=== PATIENT | male | born 1960 | race Caucasian/White ===

== ENCOUNTER 2018-06-25 15:53 | Emergency (ER) | payer MEDICARE ==
--- NOTE | 2018-06-25 15:59 | ER Report ---
History and Physical Time Seen By MD: 15:59 HPI/ROS CHIEF COMPLAINT:sob "i dont feel well, I think i need dialysis" HISTORY OF PRESENT ILLNESS: PT moving from [place] to [facility]. PT has been on hemodialysis for one year. PT usually gets dialysis M, W, F. Pt has dialysis scheduled in a clinic tomorrow in [facility]. PT stopped here because in route he started to feel more sob on arrival to [place]. They stopped at the gas station and pt states he felt dizzy and sob. said he was too weak so they decided to come to [place]. Pt has hx of copd and is on chronic oxygen. Pt denies cough. no fevers. no chest pain. PT is on levaquin due to had bronchitis prior to leaving [facility]. REVIEW OF SYSTEMS: Constitutional: No fever, no chills. Eyes: No discharge. ENT: No sore throat. Cardiovascular: No chest pain, no palpitations. Respiratory: No cough, + shortness of breath. Gastrointestinal: No abdominal pain, no vomiting. Genitourinary: No hematuria. Musculoskeletal: No back pain. Skin: No rashes. Neurological: No headache, + weakness Allergies: Coded Allergies: Penicillins (Verified Allergy, Unknown, 06/25/18) clindamycin (Verified Allergy, Unknown, 06/25/18) clonidine (Verified Allergy, Unknown, 06/25/18) tramadol (Verified Allergy, Unknown, 06/25/18) Home Meds Reported Medications Ondansetron Hcl (ZOFRAN) 4 Mg Tablet, 8 MG PO TID, TAB 06/25/18 Vitamin E Acetate (VITAMIN E) 1,000 Unit Capsule, 800 UNIT PO DAILY, CAPSULE 06/25/18 Cholecalciferol (Vitamin D3) (VITAMIN D3) 1,000 Unit Tablet, 800 UNIT PO DAILY, TAB 06/25/18 Venlafaxine Hcl (VENLAFAXINE HCL ER) 75 Mg Tab.er.24, 75 MG PO QDAY 06/25/18 Tacrolimus Anhydrous (TACROLIMUS) 0.5 Gm Powder, 2 MG MC Q12H 06/25/18 Quetiapine Fumarate (SEROQUEL) 200 Mg Tablet, 200 MG PO HS 06/25/18 Metoclopramide Hcl 10 Mg Vial (REGLAN 10 MG VIAL) 10 Mg/2 Ml Injs, 10 MG PO QID, VIAL 06/25/18 Metoclopramide Hcl 10 Mg Vial (REGLAN 10 MG VIAL) 10 Mg/2 Ml Injs, 10 MG IM NOW, VIAL 06/25/18 Calcium Acetate (CALCIUM ACETATE) 667 Mg Tablet, 667 MG PO DAILY 06/25/18 Omeprazole (OMEPRAZOLE) 40 Mg Capsule.dr, 40 MG PO QDAY, CAP 06/25/18 Nateglinide (NATEGLINIDE) 60 Mg Tablet, 30 MG PO TIDAC 06/25/18 Lorazepam (LORAZEPAM) 1 Mg Tab, 1 MG PO TID, TAB 06/25/18 Levothyroxine Sodium (LEVOTHYROXINE SODIUM) 50 Mcg Tablet, 25 MCG PO QDAY, TAB 06/25/18 Lactulose (LACTULOSE) 10 Gm/15 Ml Solution, 30 GM PO TID 06/25/18 Isosorbide Mononitrate (ISOSORBIDE MONONITRATE ER) 30 Mg Tab.er.24h, 30 MG PO 06/25/18 Insulin Lispro 100 Un/Ml Pen (HUMALOG 3 ML PEN) 100 Unit/1 Ml Insuln.pen, 1-10 UNIT SQ ACHS, DIS.SYR 06/25/18 Carvedilol (COREG) 12.5 Mg Tablet, 12.5 MG PO BID, #10 TAB 06/25/18 Ipratropium/Albuterol Sulfate (COMBIVENT RESPIMAT INHAL SPRAY) 4 Gm Aer.w.adap, 1 EACH IH QID 06/25/18 Aspirin (ASPIRIN) 81 Mg Tab.chew, 81 MG PO QDAY, TAB.CHEW 06/25/18 Zolpidem Tartrate (AMBIEN) 10 Mg Tablet, 1 TAB PO QHS, TAB 06/25/18 Albuterol Sulfate 0.083% (ALBUTEROL SULFATE 0.083%) 2.5 Mg/3 Ml Vial.neb, 2.5 MG INH Q6-8H PRN for SHORTNESS OF BREATH, INH 06/25/18 Past Medical/Surgical History pmhx: renal failure, liver transplant, copd, htn, pericardial effusion, chf, shravan b, hypothyroid PShx: liver transplant Reviewed Nurses Notes: Yes Hx Smoking: No Hx Alcohol Use: No Constitutional Vital Sign - Last 24 Hours 06/25/18 06/25/18 06/25/18 06/25/18 15:53 15:59 16:05 16:08 Temp 97.9 Pulse ??? 89 89 Resp 20 B/P (MAP) 169/93 (118) 169/93 Pulse Ox 100 99 O2 Delivery Nasal Cannula 06/25/18 06/25/18 06/25/18 06/25/18 16:23 16:30 16:53 17:00 Pulse 90 92 B/P (MAP) 148/90 (109) 158/91 (113) Pulse Ox 94 97 06/25/18 17:08 Pulse 94 Pulse Ox 97 Physical Exam General Appearance: The patient is alert, has no immediate need for airway protection and no signs of toxicity. Eyes: Pupils equal and round no pallor or injection, EOMI ENT: no pharyngeal erythema or exudates, Mucous membranes are moist Respiratory: There are no retractions, lungs are clear to auscultation. Cardiovascular: Regular rate and rhythm. pulses are equal and symmetrical Gastrointestinal: Abdomen is soft and non tender, no masses, bowel sounds normal, no guarding, no rigidity or rebound, obese Neurological: Cranial nerves II-XII grossly intact, no sensory or motor loss Skin: Warm and dry, no rashes. Musculoskeletal: Neck is supple non tender, no vertebral tenderness Extremities are nontender, non swollen and have full range of motion. DIFFERENTIAL DIAGNOSIS: After history and physical exam differential diagnosis was considered for altitiude sickness, electrolyte abnl Medical Decision Making Data Points Result Diagram: 06/25/18 1621 06/25/18 1621 Laboratory Hematology Test 06/25/18 16:21 Red Blood Count 2.98 M/uL (4.00-5.60) Mean Corpuscular Volume 102.3 fL (80.0-96.0) Mean Corpuscular Hemoglobin 32.8 pg (26.0-33.0) Mean Corpuscular Hemoglobin Concent 32.1 g/dL (32.0-36.0) Red Cell Distribution Width 15.1 % (11.5-14.5) Mean Platelet Volume 7.7 fL (7.2-11.1) Neutrophils (%) (Auto) 79.7 % (39.4-72.5) Lymphocytes (%) (Auto) 10.5 % (17.6-49.6) Monocytes (%) (Auto) 6.6 % (4.1-12.4) Eosinophils (%) (Auto) 1.8 % (0.4-6.7) Basophils (%) (Auto) 1.4 % (0.3-1.4) Nucleated RBC Relative Count (auto) 0.1 /100WBC Neutrophils # (Auto) 5.0 K/uL (2.0-7.4) Lymphocytes # (Auto) 0.7 K/uL (1.3-3.6) Monocytes # (Auto) 0.4 K/uL (0.3-1.0) Eosinophils # (Auto) 0.1 K/uL (0.0-0.5) Basophils # (Auto) 0.1 K/uL (0.0-0.1) Nucleated RBC Absolute Count (auto) 0.00 K/uL Peripheral Blood Smear No Y/N Sodium Level 135 mmol/L (137-145) Potassium Level 5.6 mmol/L (3.5-5.0) Chloride Level 96 mmol/L (98-107) Carbon Dioxide Level 21 mmol/L (22-30) Blood Urea Nitrogen 76 mg/dl (9-21) Creatinine 10.90 mg/dl (0.66-1.25) Glomerular Filtration Rate Calc 4.9 Random Glucose 132 mg/dl (75-110) Calcium Level 8.1 mg/dl (8.4-10.2) Total Bilirubin 0.4 mg/dl (0.2-1.3) Aspartate Amino Transf (AST/SGOT) 18 U/L (0-35) Alanine Aminotransferase (ALT/SGPT) 23 U/L (0-56) Alkaline Phosphatase 68 U/L (0-126) Total Protein 7.6 g/dl (6.3-8.2) Albumin 4.2 g/dl (3.5-5.0) Chemistry Test 06/25/18 16:21 White Blood Count 6.2 k/uL (4.5-11.0) Red Blood Count 2.98 M/uL (4.00-5.60) Hemoglobin 9.8 g/dL (14.0-18.0) Hematocrit 30.5 % (42.0-52.0) Mean Corpuscular Volume 102.3 fL (80.0-96.0) Mean Corpuscular Hemoglobin 32.8 pg (26.0-33.0) Mean Corpuscular Hemoglobin Concent 32.1 g/dL (32.0-36.0) Red Cell Distribution Width 15.1 % (11.5-14.5) Platelet Count 135 K/uL (150-450) Mean Platelet Volume 7.7 fL (7.2-11.1) Neutrophils (%) (Auto) 79.7 % (39.4-72.5) Lymphocytes (%) (Auto) 10.5 % (17.6-49.6) Monocytes (%) (Auto) 6.6 % (4.1-12.4) Eosinophils (%) (Auto) 1.8 % (0.4-6.7) Basophils (%) (Auto) 1.4 % (0.3-1.4) Nucleated RBC Relative Count (auto) 0.1 /100WBC Neutrophils # (Auto) 5.0 K/uL (2.0-7.4) Lymphocytes # (Auto) 0.7 K/uL (1.3-3.6) Monocytes # (Auto) 0.4 K/uL (0.3-1.0) Eosinophils # (Auto) 0.1 K/uL (0.0-0.5) Basophils # (Auto) 0.1 K/uL (0.0-0.1) Nucleated RBC Absolute Count (auto) 0.00 K/uL Peripheral Blood Smear No Y/N Glomerular Filtration Rate Calc 4.9 Calcium Level 8.1 mg/dl (8.4-10.2) Total Bilirubin 0.4 mg/dl (0.2-1.3) Aspartate Amino Transf (AST/SGOT) 18 U/L (0-35) Alanine Aminotransferase (ALT/SGPT) 23 U/L (0-56) Alkaline Phosphatase 68 U/L (0-126) Total Protein 7.6 g/dl (6.3-8.2) Albumin 4.2 g/dl (3.5-5.0) EKG/Imaging EKG Interpretation nsr @ 90 with low qs voltage no acute st elevation Imaging mild central venous congestive changes ED Course/Re-evaluation Clinical Indication for ER IV: IV Access ED Course check labs, xray and will speak with [facility] 06/25/2018 5:23:22 pm Spoke with stuffing machine operator at [facility], Dr. Jorje Berg, who accepts pt under observation status at [facility]. Would like for us to treat his hyperkalemia with bicarb and insulin and glucose. Pt and is made aware of need for transfer. 06/25/2018 5:50:37 pm We received a bed from [facility], [id number]. Awaiting nursing laundry supervisor to come down to arrange ems transport. Will recheck bmp if ems is not here in next 30 minutes Decision to Disposition Date: Jun 25, 2018 Decision to Disposition Time: 17:51 Depart Departure Latest Vital Signs Vital Signs Date Time Temp Pulse Resp B/P (MAP) Pulse Ox O2 Delivery O2 Flow Rate FiO2 06/25/18 17:08 94 97 06/25/18 17:00 158/91 (113) 06/25/18 16:05 97.9 20 Nasal Cannula Impression: Primary Impression: Renal failure Additional Impressions: Hyperkalemia Congestive heart failure (CHF) Dyspnea Condition: Condition Unchanged Disposition: XFER TO [facility] Problem Qualifiers Primary Impression: Renal failure Renal failure chronicity: chronic Chronic kidney disease stage: on chronic dialysis Qualified Codes: N18.6 - End stage renal disease; Z99.2 - Dependence on renal dialysis Additional Impressions: Congestive heart failure (CHF) Heart failure type: unspecified Heart failure chronicity: acute on chronic Qualified Codes: I50.9 - Heart failure, unspecified Dyspnea Dyspnea type: unspecified Qualified Codes: R06.00 - Dyspnea, unspecified VI MONK DO Jun 25, 2018 15:59
[2018-06-25 16:40] LABS: PLATELET COUNT, AUTOMATED 135 K/uL (150-450)
--- NOTE | 2018-06-25 16:40 | EKG ---
FACILITY: [facility] PATIENT NAME: TEE GUTIERREZ : [id number] MR: [id number] V: [id number] EXAM DATE: ORDERING PHYSICIAN: VI MONK TECHNOLOGIST: LYLA Test Reason : SOB Blood Pressure : / mmHG Vent. Rate : 089 BPM Atrial Rate : 089 BPM P-R Int : 186 ms QRS Dur : 084 ms QT Int : 366 ms P-R-T Axes : 036 011 013 degrees QTc Int : 445 ms Normal sinus rhythm Low voltage QRS Cannot rule out Anterior infarct , age undetermined Abnormal ECG No previous ECGs available Confirmed by SABRINA STONE ([id number]) on 06/25/2018 7:40:29 PM Referred By: LACHO Confirmed By:SABRINA STONE
--- NOTE | 2018-06-25 16:51 | RADIOLOGY IMAGING REPORT ---
FACILITY: [facility] [place] PATIENT NAME: Addy Christie : 1960 MR: [id number] V: [id number] EXAM DATE: ORDERING PHYSICIAN: VI MONK TECHNOLOGIST: Location: [facility] [place] Patient: Addy Christie : 1960 Visit/Account:[id number] Date of Sevice: 06/25/2018 2 VIEWS CHEST INDICATION: COPD, difficulty breathing COMPARISON: None available FINDINGS: Heart is enlarged. Dual-lead catheter overlies the left hemithorax, leads terminating in the region of the superior vena cava and near the cavoatrial junction. Mild central congestive changes without alveolar consolidation, fulminant failure, effusion or pneumo thorax. IMPRESSION: 1. Mild central venous congestive changes Report Dictated By: Matt Neves MD at 06/25/2018 4:47 PM Report E-Signed By: Matt Neves MD at 06/25/2018 4:48 PM WSN:[id number]
[2018-06-25] MEDS ORDERED: ZOLP-350 PO (16:55)
[2018-06-25] MEDS ORDERED: OMEP40CA48 PO (16:55)
[2018-06-25] MEDS ORDERED: IPRA4AER IH (16:55)
[2018-06-25] MEDS ORDERED: [UNRECOGNIZED DRUG - CODE] MC (16:55)
[2018-06-25] MEDS ORDERED: CHOL10005 PO (16:55)
[2018-06-25] MEDS ORDERED: QUET200T29 PO (16:55)
[2018-06-25] MEDS ORDERED: ALBU2.5V36 INH (16:55)
[2018-06-25] MEDS ORDERED: CARV12.577 PO (16:55)
[2018-06-25] MEDS ORDERED: CALC667T3 PO (16:55)
[2018-06-25] MEDS ORDERED: INSU100I28 SQ (16:55)
[2018-06-25] MEDS ORDERED: LOR1 PO (16:55)
[2018-06-25] MEDS ORDERED: METO10I IM (16:55)
[2018-06-25] MEDS ORDERED: NATE60TA PO (16:55)
[2018-06-25] MEDS ORDERED: LACT10SO62 PO (16:55)
[2018-06-25] MEDS ORDERED: VENL75TA98 PO (16:55)
[2018-06-25] MEDS ORDERED: LEVO50TA86 PO (16:55)
[2018-06-25] MEDS ORDERED: ISOS30TA54 PO (16:55)
[2018-06-25] MEDS ORDERED: METO10I PO (16:55)
[2018-06-25] MEDS ORDERED: VITA-198 PO (16:55)
[2018-06-25] MEDS ORDERED: ASPI81TA94 PO (16:55)
[2018-06-25] MEDS ORDERED: ONDA4TAB97 PO (16:56)
[2018-06-25] MEDS ORDERED: DEXTROSE 50% 50 ML SYR IVP ONE (17:10)
[2018-06-25] MEDS ORDERED: INSU HUM REG 100 U/ML(ER ONLY) 10 ML VIAL IVP ONE (17:10)
[2018-06-25] MEDS ORDERED: SODIUM BICAR(* 8.4% 50 ML SYR 50 ML SYR IVP ONE (17:10)
[2018-06-25 17:30] VITALS: BP 157/97
== END 2018-06-25 18:50 | disposition short-term general hospital (02) ==
LOC: ER 16:23
DX: N18.6 End stage renal disease (principal); I50.9 Heart failure, unspecified; R06.02 Shortness of breath; Z99.2 Dependence on renal dialysis
CPT/HCPCS: 36415; 71046; 85025; 93005; 96374; 96375; 99285; A9270; 82040; 82247; 82310; 82374; 82435; 82565; 82947; 84075; 84132; 84155; 84295; 84450; 84460; 84520; 96376; J1815

== ENCOUNTER → 2018-06-25 | Outpatient (CLI) | payer MEDICARE ==
[~2018-06-25] MED LIST: ALBU2.5V36 INH; ASPI81TA94 PO; CALC667T3 PO; CARV12.577 PO; CHOL10005 PO; INSU100I28 SQ; IPRA4AER IH; ISOS30TA54 PO; LACT10SO62 PO; LEVO50TA86 PO; LOR1 PO; METO10I IM; METO10I PO; NATE60TA PO; OMEP40CA48 PO; ONDA4TAB97 PO; QUET200T29 PO; VENL75TA98 PO; VITA-198 PO; ZOLP-350 PO; [UNRECOGNIZED DRUG - CODE] MC
== END ==
LOC: AMB 18:26
PROVIDERS: ATTEND Nurse Practitioner
DX: R55 Syncope and collapse (principal); Z99.2 Dependence on renal dialysis; R53.81 Other malaise; I48.91 Unspecified atrial fibrillation
CPT/HCPCS: A0425; A0426